=== PATIENT | male | born 1965 | race Caucasian/White ===

== ENCOUNTER 2017-06-17 09:27 | Emergency (ER) | payer OTHER ==
[2017-06-17] MEDS ORDERED: Sodium Chloride 0.9% 10 ML Syringe FLUSH PRN (09:55)
[2017-06-17] MEDS ORDERED: Ondansetron 4 MG/2 ML SDV IV ONE (09:56)
--- NOTE | 2017-06-17 10:02 | EDM.PDOC ---
ED HPI GENERAL MEDICAL PROBLEM - General Chief Complaint: Abdominal Pain Stated Complaint: GERD Time Seen by Provider: 06/17/17 09:43 Source of Information: Reports: Patient, RN, RN Notes Reviewed History Limitations: Reports: No Limitations - History of Present Illness INITIAL COMMENTS - FREE TEXT/NARRATIVE: Patient presents to ER with complaint of GERD symptoms, nausea and vomiting. He states pain is in the epigastric region. Patient states pain and nausea began on Sunday after a cup of coffee on an empty stomach. Patient states he has not taken any pills due to nausea. States he took Zantac without relief. Also has taken Ibuprofen. No cardiac history. History of GERD, kidney stones, hypertension and diverticulosis. Onset Date: 06/15/17 Duration: Getting Worse Location: Reports: Chest, Other (epigastric) Quality: Reports: Ache, Burning Severity: Moderate Improves with: Reports: None Worsens with: Reports: None Associated Symptoms: Reports: No Other Symptoms Abdominal Pain Score (Numeric/FACES): 4 - Related Data Allergies Allergy/AdvReac Type Severity Reaction Status Date / Time No Known Allergies Allergy Verified 05/19/16 08:25 Home Meds: Home Meds Losartan 50 mg PO DAILY 03/20/15 [History] Fenofibrate Nanocrystallized [Tricor] 145 mg PO DAILY 06/17/17 [History] Losartan [Cozaar] 06/17/17 [History] metFORMIN HCl [Metformin HCl ER] 500 mg PO BID 06/17/17 [History] Past Medical History - Past Health History Medical/Surgical History: Denies Medical/Surgical History HEENT History: Reports: Other (See Below) Other HEENT History: high frequency hearing loss, tininitis Cardiovascular History: Reports: Hypertension Gastrointestinal History: Reports: GERD Genitourinary History: Reports: Renal Calculus Social & Family History - Family History Cardiac: Reports: CAD, Hypertension Respiratory: Reports: None GI: Reports: None : Reports: None Musculoskeletal: Reports: None Neurological: Reports: None Psychiatric: Reports: None Endocrine/Metabolic: Reports: None Immunologic: Reports: None Dermatologic: Reports: None Oncologic: Reports: Bladder - Tobacco Use Smoking Status *Q: Never Smoker Second Hand Smoke Exposure: No - Alcohol Use Days Per Week of Alcohol Use: 2 Number of Drinks Per Day: 2 Total Drinks Per Week: 4 - Recreational Drug Use Recreational Drug Use: No - Living Situation & Occupation Living situation: Reports: , with Family ED ROS GENERAL - Review of Systems Review Of Systems: ROS reveals no pertinent complaints other than HPI. ED EXAM, GI/ABD - Physical Exam Exam: See Below Exam Limited By: No Limitations General Appearance: Alert, WD/WN, No Apparent Distress Eyes: Bilateral: Normal Appearance Ears: Normal External Exam, Normal Canal, Hearing Grossly Normal, Normal TMs Nose: Normal Inspection, Normal Mucosa, No Blood Throat/Mouth: Normal Inspection, Normal Lips, Normal Teeth, Normal Gums, Normal Oropharynx, Normal Voice, No Airway Compromise Head: Atraumatic, Normocephalic Neck: Normal Inspection, Supple, Non-Tender, Full Range of Motion Respiratory/Chest: No Respiratory Distress, Lungs Clear, Normal Breath Sounds, No Accessory Muscle Use, Chest Non-Tender Cardiovascular: Normal Peripheral Pulses, Regular Rate, Rhythm, No Edema, No Gallop, No JVD, No Murmur, No Rub GI/Abdominal Exam: Other (tenderness epigastric) (Male) Exam: Deferred Rectal (Males) Exam: Deferred Back Exam: Normal Inspection, Full Range of Motion, NT Extremities: Normal Inspection, Normal Range of Motion, Non-Tender, Normal Capillary Refill, No Pedal Edema Neurological: Alert, Oriented, CN II-XII Intact, Normal Cognition, Normal Gait, Normal Reflexes, No Motor/Sensory Deficits Psychiatric: Normal Affect, Normal Mood Skin Exam: Warm, Dry, Intact, Normal Color, No Rash Lymphatic: No Adenopathy EKG INTERPRETATION EKG Date: 06/17/17 Time: 09:59 Rhythm: Other (sinus rhythm) Rate (Beats/Min): 74 Course - Vital Signs Last Recorded V/S: Last Vital Signs Temp 97.6 F 06/17/17 09:42 Pulse 78 06/17/17 12:24 Resp 16 06/17/17 12:24 BP 149/96 H 06/17/17 12:24 Pulse Ox 96 06/17/17 12:24 - Orders/Labs/Meds Orders: Active Orders 24 hr Category Date Time Status EKG Documentation Completion [RC] STAT Care 06/17/17 09:55 Active Peripheral IV Care [RC] . DIRECTED Care 06/17/17 09:56 Active UA W/MICROSCOPIC [URIN] Stat Lab 06/17/17 10:18 Ordered Peripheral IV Insertion Adult [OM.PC] Stat Oth 06/17/17 09:55 Ordered Labs: Laboratory Tests 06/17/17 06/17/17 06/17/17 Range/Units 09:56 09:56 09:56 WBC 6.9 (5.0-10.0) 10^3/uL RBC 5.79 (4.6-6.2) 10^6/uL Hgb 15.9 (14.0-18.0) g/dL Hct 45.5 (40.0-54.0) % MCV 78.6 L (80-100) fL MCH 27.5 (27.0-34.0) pg MCHC 34.9 (33.0-35.0) g/dL Plt Count 198 (150-450) 10^3/uL Neut % (Auto) 81.7 H (42.2-75.2) % Lymph % (Auto) 13.3 L (20.5-50.1) % [place] % (Auto) 4.3 (2-8) % Eos % (Auto) 0.3 L (1.0-3.0) % Baso % (Auto) 0.4 (0.0-1.0) % PT 10.6 (9.0-12.0) SEC INR 1.1 (0.9-1.2) Sodium 134 L (135-145) mmol/L Potassium 3.9 (3.6-5.0) mmol/L Chloride 104 (101-111) mmol/L Carbon Dioxide 23.0 (21.0-31.0) mmol/L Anion Gap 10.9 BUN 15 (7-18) mg/dL Creatinine 0.9 (0.6-1.3) mg/dL Est Cr Clr Drug Dosing 102.99 mL/min Estimated GFR (MDRD) > 60 BUN/Creatinine Ratio 16.66 Glucose 207 H (74-105) mg/dL Calcium 9.2 (8.4-10.2) mg/dl Total Bilirubin 2.4 H (0.2-1.0) mg/dL AST 294 H (10-42) IU/L ALT 587 H (10-60) IU/L Alkaline Phosphatase 126 H (42-121) IU/L Troponin I < 0.02 (0.00-0.02) ng/ml Total Protein 7.3 (6.7-8.2) g/dl Albumin 4.5 (3.2-5.5) g/dl Globulin 2.8 Albumin/Globulin Ratio 1.61 Lipase 21 L (22-51) U/L Urine Color (YELLOW) Urine Appearance (CLEAR) Urine pH (5.0-9.0) Ur Specific [place] (1.005-1.030) Urine Protein (NEGATIVE) Urine Glucose (UA) (NEGATIVE) Urine Ketones (NEGATIVE) Urine Occult Blood (NEGATIVE) Urine Nitrite (NEGATIVE) Urine Bilirubin (NEGATIVE) Urine Urobilinogen (0.2-1.0) mg/dL Ur Leukocyte Esterase (NEGATIVE) Urine RBC /HPF Urine WBC (0-5/HPF) /HPF Ur Epithelial Cells /HPF Amorphous Sediment (0/HPF) /HPF Urine Bacteria (0-FEW/HPF) /HPF Urine Mucus /LPF 06/17/17 Range/Units 10:18 WBC (5.0-10.0) 10^3/uL RBC (4.6-6.2) 10^6/uL Hgb (14.0-18.0) g/dL Hct (40.0-54.0) % MCV (80-100) fL MCH (27.0-34.0) pg MCHC (33.0-35.0) g/dL Plt Count (150-450) 10^3/uL Neut % (Auto) (42.2-75.2) % Lymph % (Auto) (20.5-50.1) % [place] % (Auto) (2-8) % Eos % (Auto) (1.0-3.0) % Baso % (Auto) (0.0-1.0) % PT (9.0-12.0) SEC INR (0.9-1.2) Sodium (135-145) mmol/L Potassium (3.6-5.0) mmol/L Chloride (101-111) mmol/L Carbon Dioxide (21.0-31.0) mmol/L Anion Gap BUN (7-18) mg/dL Creatinine (0.6-1.3) mg/dL Est Cr Clr Drug Dosing mL/min Estimated GFR (MDRD) BUN/Creatinine Ratio Glucose (74-105) mg/dL Calcium (8.4-10.2) mg/dl Total Bilirubin (0.2-1.0) mg/dL AST (10-42) IU/L ALT (10-60) IU/L Alkaline Phosphatase (42-121) IU/L Troponin I (0.00-0.02) ng/ml Total Protein (6.7-8.2) g/dl Albumin (3.2-5.5) g/dl Globulin Albumin/Globulin Ratio Lipase (22-51) U/L Urine Color Dark yellow (YELLOW) Urine Appearance Slightly cloudy (CLEAR) Urine pH 5.5 (5.0-9.0) Ur Specific [place] >= 1.030 (1.005-1.030) Urine Protein 100 H (NEGATIVE) Urine Glucose (UA) Negative (NEGATIVE) Urine Ketones Negative (NEGATIVE) Urine Occult Blood Negative (NEGATIVE) Urine Nitrite Negative (NEGATIVE) Urine Bilirubin Moderate H (NEGATIVE) Urine Urobilinogen 0.2 (0.2-1.0) mg/dL Ur Leukocyte Esterase Negative (NEGATIVE) Urine RBC 0-5 /HPF Urine WBC 0-5 (0-5/HPF) /HPF Ur Epithelial Cells Rare /HPF Amorphous Sediment Few (0/HPF) /HPF Urine Bacteria Rare (0-FEW/HPF) /HPF Urine Mucus Moderate H /LPF Meds: Medications Discontinued Medications Generic Name Dose Route Start Last Admin Trade Name Freq PRN Reason Stop Dose Admin Famotidine 20 mg 06/17/17 11:09 06/17/17 11:16 Pepcid IVPUSH 06/17/17 11:10 20 mg ONETIME ONE Administration Sodium Chloride 1,000 mls @ 999 mls/hr 06/17/17 11:09 06/17/17 11:14 Normal Saline IV 06/17/17 12:09 999 mls/hr .BOLUS ONE Administration Ondansetron HCl 4 mg 06/17/17 09:56 06/17/17 10:06 Zofran IV 06/17/17 09:57 4 mg ONETIME ONE Administration Sodium Chloride 10 ml 06/17/17 09:55 06/17/17 10:05 Saline Flush FLUSH 10 ml ASDIRECTED PRN Administration Keep Vein Open - Radiology Interpretation Free Text/Narrative:: Portable Chest xray: IMPRESSION: Mild LEFT basilar pulmonary subsegmental atelectasis. Thank you for allowing us to participate in the care of your patient. Dictated and Authenticated by: Cristian Luis MD 06/17/2017 10:46 AM Central Time ([place] & [place]) See rad report - Re-Assessments/Exams Free Text/Narrative Re-Assessment/Exam: 06/17/17 11:23 Discussed with patient his elevated liver enzymes. Patient states some of his medications may be the culprit. We discussed the possibility of gallstones as well as the need for GI consultation. The patient states he will follow up with his primary [facility] facility ([facility] tomorrow. Departure - Departure Time of Disposition: 12:15 Disposition: Home, Self-Care 01 Condition: Fair Clinical Impression: Elevated liver enzymes Nausea and vomiting Qualifiers: Vomiting type: unspecified Vomiting Intractability: unspecified Qualified Code( s): R11.2 - Nausea with vomiting, unspecified GERD (gastroesophageal reflux disease) Qualifiers: Esophagitis presence: esophagitis presence not specified Qualified Code(s): K21.9 - Gastro-esophageal reflux disease without esophagitis - Discharge Information Instructions: Food Choices for Gastroesophageal Reflux Disease, Adult, Nausea and Vomiting, Adult, Gastroesophageal Reflux Disease, Adult, [id number] Referrals: Christina Maldonado I, ZONIA, PARubenC [Primary Care Provider] - Forms: ED Department Discharge Additional Instructions: [facility] RX: Zofran and Carafate Follow food choices for GERD - My Orders Last 24 Hours: My Active Orders 06/17/17 09:55 EKG Documentation Completion [RC] STAT Peripheral IV Insertion Adult [OM.PC] Stat 06/17/17 09:56 Peripheral IV Care [RC] . DIRECTED 06/17/17 10:18 UA W/MICROSCOPIC [URIN] Stat - Assessment/Plan Last 24 Hours: My Active Orders 06/17/17 09:55 EKG Documentation Completion [RC] STAT Peripheral IV Insertion Adult [OM.PC] Stat 06/17/17 09:56 Peripheral IV Care [RC] . DIRECTED 06/17/17 10:18 UA W/MICROSCOPIC [URIN] Stat
[2017-06-17 10:32] LABS: CHLORIDE,CL 104 mmol/L (101-111); SODIUM,NA 134 mmol/L (135-145)
[2017-06-17] MEDS ORDERED: Sodium Chloride 0.9% 1,000 ML IV ONE (11:09)
[2017-06-17 12:24] VITALS: BP 149/96
--- NOTE | 2017-06-19 13:30 | EKG ---
06/17/2017- ALYCIA ORELLANA - FINDINGS: EKG, per my reading, shows sinus rhythm at the rate of 74. [facility] /[id number]
== END 2017-06-17 12:15 | disposition home or self-care (01) ==
LOC: DL.ED 09:27
DX: K21.9 Gastro-esophageal reflux disease without esophagitis (principal); R74.8 Abnormal levels of other serum enzymes; I10 Essential (primary) hypertension; Z79.899 Other long term (current) drug therapy; Z79.84 Long term (current) use of oral hypoglycemic drugs; Z87.442 Personal history of urinary calculi
CPT/HCPCS: 36415; 71045; 80053; 81001; 83690; 84484; 85025; 85610; 93005; 93010; 96361; 96374; 96375; 99284; J2405; J3490; J7030; J7050

== ENCOUNTER 2017-07-09 08:15 | Day surgery (SDC) | payer OTHER ==
[~2017-07-09 08:15] MED LIST: Lactated Ringers 1,000 ML IV SCH; Midazolam 1 MG/ML 2 ML SDV ONE; fentaNYL 100 MCG/2 ML SDV ONE
[2017-07-09] MEDS ORDERED: fentaNYL 100 MCG/2 ML SDV IV ONE ×2 (08:16→08:45)
[2017-07-09] MEDS ORDERED: Midazolam 1 MG/ML 2 ML SDV IV ONE ×2 (08:16→08:46)
[2017-07-09] MEDS ORDERED: Benzocaine 20% Oral Spray 59.2 ML Canister ONE (08:23)
[2017-07-09] MEDS ORDERED: Midazolam 1 MG/ML 2 ML SDV ONE (08:23)
[2017-07-09] MEDS ORDERED: Benzocaine 20% Oral Spray 59.2 ML Canister MUCMEM ONE (08:45)
[2017-07-09 10:53] VITALS: BP 127/75
--- NOTE | 2017-07-09 15:56 | OR ---
DATE: 07/09/2017 PREOPERATIVE DIAGNOSES: History of peptic ulcer disease and gastroesophageal reflux disease. POSTOPERATIVE DIAGNOSES: History of peptic ulcer disease and gastroesophageal reflux disease. PROCEDURE: EGD with biopsy of prepyloric antrum and photographs. ANESTHESIA: Conscious sedation with IV Versed and fentanyl. SPECIMEN: H. pylori biopsy, gastric prepyloric area. FINDINGS: Otherwise normal. INDICATION FOR PROCEDURE: This 52-year-old male has a history of peptic ulcer disease and also has GERD symptoms. He has had prior EGDs with biopsies. PROCEDURE: After adequate preparation, a gastroscope was inserted into the esophagus. This was passed down to the distal esophagus. He shows no evidence of significant hiatal hernia or reflux esophagitis. There was no evidence of Zamorano's. A photograph of this normal EG junction was taken. The scope was advanced into the stomach. Both forward and retroflexed views were done and are normal. There is no evidence of gastritis. A biopsy in the prepyloric area was taken to rule out H. pylori bacteria. The scope was advanced and a photograph of this was taken. The scope was advanced through the pylorus, the duodenum appeared to be normal. No evidence of ulceration in the first, second or third portion. A photograph of duodenum was also taken. Air was suctioned from the stomach and the scope removed. [facility] /[id number]
== END 2017-07-09 10:04 | disposition home or self-care (01) ==
LOC: DL.ENDO 08:15 → EDSTATUS 09:00 → DL.ENDO 10:04
PROVIDERS: ATTEND Surgery
DX: K21.9 Gastro-esophageal reflux disease without esophagitis (principal); Z87.11 Personal history of peptic ulcer disease; I10 Essential (primary) hypertension; E11.9 Type 2 diabetes mellitus without complications; G47.30 Sleep apnea, unspecified
CPT/HCPCS: 43239; 87077; J2250; J3010; J7120

== ENCOUNTER 2019-05-12 15:15 | Emergency (ER) | payer OTHER ==
--- NOTE | 2019-05-12 15:45 | EDM.PDOC ---
ED HPI GENERAL MEDICAL PROBLEM - General Chief Complaint: Abdominal Pain Stated Complaint: POSSIBLE KIDNEY STONE Time Seen by Provider: 05/12/19 15:44 Source of Information: Reports: Patient, RN, RN Notes Reviewed History Limitations: Reports: No Limitations - History of Present Illness INITIAL COMMENTS - FREE TEXT/NARRATIVE: Pt to ER with c/o left abdominal/groin pain that radiates to the left back. Patient states he thinks he has a kidney stone, that he has had one in the past. Patient states he was dx with C diff last week and hospitalized at [facility] for 2 days. Patient states he was very dehydrated at that time. Patient states he thinks he is dehydrated again at this time. Admits to nausea in waves. Denies fever or chills. Denies blood in the urine. Onset: Today, Sudden - Related Data Allergies Allergy/AdvReac Type Severity Reaction Status Date / Time No Known Allergies Allergy Verified 12/03/17 06:57 Home Meds: Home Meds Losartan [Cozaar] 50 mg PO DAILY 06/17/17 [History] metFORMIN HCl [Metformin HCl ER] 500 mg PO BID 06/17/17 [History] Cholecalciferol (Vitamin D3) [Vitamin D3] 1,000 units PO DAILY 07/05/17 [History ] Gemfibrozil 600 mg PO DAILY 07/05/17 [History] Past Medical History - Past Health History Medical/Surgical History: Denies Medical/Surgical History HEENT History: Reports: Hard of Hearing, Impaired Vision, Other (See Below) Other HEENT History: high frequency hearing loss, tininitis Cardiovascular History: Reports: High Cholesterol, Hypertension Respiratory History: Reports: Sleep Apnea Gastrointestinal History: Reports: Diverticulosis, GERD, Other (See Below) Other Gastrointestinal History: NON ALCOHOLIC FATTY LIVER DISEASE, HX OF ELEVATED LIVER ENZYMES. Hx of adenoma Genitourinary History: Reports: None, Renal Calculus Musculoskeletal History: Reports: Arthritis Neurological History: Reports: None Psychiatric History: Reports: None Endocrine/Metabolic History: Reports: Diabetes, Type II, Obesity/BMI 30+, Vitamin D Deficiency Hematologic History: Reports: None Immunologic History: Reports: None Oncologic (Cancer) History: Reports: None Dermatologic History: Reports: None - Infectious Disease History Infectious Disease History: Reports: Chicken Pox - Past Surgical History Head Surgeries/Procedures: Reports: None HEENT Surgical History: Reports: Oral Surgery Other HEENT Surgeries/Procedures: Dental implant Cardiovascular Surgical History: Reports: None Respiratory Surgical History: Reports: None GI Surgical History: Reports: Colonoscopy, Polypectomy Male Surgical History: Reports: Circumcision Other Male Surgeries/Procedures: circumcision as a child Neurological Surgical History: Reports: None Musculoskeletal Surgical History: Reports: None Dermatological Surgical History: Reports: None Social & Family History - Family History HEENT: Reports: None Cardiac: Reports: Heart Failure, High Cholesterol, Hypertension Respiratory: Reports: None GI: Reports: Diverticulosis : Reports: None Musculoskeletal: Reports: None Neurological: Reports: Other (See Below) Other Neurological Family History: Brother has muscular dystophy Psychiatric: Reports: None Endocrine/Metabolic: Reports: None Hematologic: Reports: None Immunologic: Reports: None Dermatologic: Reports: None Oncologic: Reports: Bladder, Other (See Below) Other Oncologic Family History: Bladder cancer father. testicular cancer #6 brother - Caffeine Use Caffeine Use: Reports: Coffee, Tea Other Caffeine Use: 2 cups daily - Living Situation & Occupation Living situation: Reports: , with Family ED ROS GENERAL - Review of Systems Review Of Systems: Comprehensive ROS is negative, except as noted in HPI. ED EXAM, RENAL/ - Physical Exam Exam: See Below Exam Limited By: No Limitations General Appearance: Alert, WD/WN, Mild Distress Eye Exam: Bilateral Eye: EOMI, Normal Inspection Ears: Normal External Exam, Hearing Grossly Normal Nose: Normal Inspection Throat/Mouth: Normal Inspection, Normal Voice, No Airway Compromise Head: Atraumatic, Normocephalic Neck: Normal Inspection, Supple, Non-Tender, Full Range of Motion Respiratory/Chest: No Respiratory Distress, Lungs Clear, Normal Breath Sounds, No Accessory Muscle Use, Chest Non-Tender Cardiovascular: Normal Peripheral Pulses, Regular Rate, Rhythm, No Edema, No Gallop, No JVD, No Murmur, No Rub GI/Abdominal: Normal Bowel Sounds, Soft, Non-Tender, No Organomegaly, No Distention, No Abnormal Bruit, No Mass (Male) Exam: Deferred Rectal (Males) Exam: Deferred Back Exam: Normal Inspection, Full Range of Motion, NT Extremities: Normal Inspection, Normal Range of Motion, Non-Tender, Normal Capillary Refill, No Pedal Edema Neurological: Alert, Oriented, CN II-XII Intact, Normal Cognition, Normal Gait, Normal Reflexes, No Motor/Sensory Deficits Psychiatric: Normal Affect, Normal Mood Skin Exam: Warm, Dry, Intact, Normal Color, No Rash Lymphatic: No Adenopathy Course - Orders/Labs/Meds Orders: Active Orders 24 hr Category Date Time Status Peripheral IV Care [RC] . DIRECTED Care 05/12/19 15:31 Active Sodium Chloride 0.9% [Normal Saline] 1,000 ml Med 05/12/19 16:27 Active IV .BOLUS Sodium Chloride 0.9% [Saline Flush] Med 05/12/19 15:30 Active 10 ml FLUSH ASDIRECTED PRN Peripheral IV Insertion Adult [OM.PC] Stat Oth 05/12/19 15:29 Ordered Medication Orders Sodium Chloride (Normal Saline) 1,000 mls @ 999 mls/hr IV .BOLUS ONE Stop: 05/12/19 17:27 Last Admin: 05/12/19 16:31 Dose: 999 mls/hr Sodium Chloride (Saline Flush) 10 ml FLUSH ASDIRECTED PRN PRN Reason: Keep Vein Open Last Admin: 05/12/19 15:52 Dose: 10 ml Labs: Laboratory Tests 05/12/19 05/12/19 05/12/19 Range/Units 15:42 15:42 16:34 WBC 4.5 L (5.0-10.0) 10^3/uL RBC 4.76 (4.6-6.2) 10^6/uL Hgb 13.1 L D (14.0-18.0) g/dL Hct 38.7 L (40.0-54.0) % MCV 81.3 (80-100) fL MCH 27.5 (27.0-34.0) pg MCHC 33.9 (33.0-35.0) g/dL Plt Count 276 D (150-450) 10^3/uL Neut % (Auto) 63.5 (42.2-75.2) % Lymph % (Auto) 25.8 (20.5-50.1) % [place] % (Auto) 8.7 H (2-8) % Eos % (Auto) 1.8 (1.0-3.0) % Baso % (Auto) 0.2 (0.0-1.0) % Add Manual Diff Yes Neutrophils % (Manual) 58 (42-75) % Band Neutrophils % 9 % Lymphocytes % (Manual) 22 (20-50) % Monocytes % (Manual) 8 (2-8) % Eosinophils % (Manual) 3 (1-3) % Sodium 141 (136-145) mmol/L Potassium 4.1 (3.5-5.1) mmol/L Chloride 103 (98-107) mmol/L Carbon Dioxide 28 (21-32) mmol/L Anion Gap 14.1 H (7-13) mEq/L BUN 25 H (7-18) mg/dL Creatinine 1.36 H (0.70-1.30) mg/dL Est Cr Clr Drug Dosing TNP Estimated GFR (MDRD) 54 BUN/Creatinine Ratio 18.4 (No establ ref range) Glucose 113 H (74-99) mg/dL Calcium 9.0 (8.5-10.1) mg/dL Total Bilirubin 0.5 (0.2-1.0) mg/dL AST 33 (15-37) U/L ALT 89 H (16-63) U/L Alkaline Phosphatase 91 (46-116) U/L Total Protein 7.3 (6.4-8.2) g/dL Albumin 3.8 (3.4-5.0) g/dL Globulin 3.5 Albumin/Globulin Ratio 1.1 Urine Color Yellow (YELLOW) Urine Appearance Slightly cloudy (CLEAR) Urine pH 5.0 (5.0-9.0) Ur Specific [place] >= 1.030 (1.005-1.030) Urine Protein Negative (NEGATIVE) Urine Glucose (UA) Negative (NEGATIVE) Urine Ketones Negative (NEGATIVE) Urine Occult Blood Large H (NEGATIVE) Urine Nitrite Negative (NEGATIVE) Urine Bilirubin Negative (NEGATIVE) Urine Urobilinogen 0.2 (0.2-1.0) mg/dL Ur Leukocyte Esterase Negative (NEGATIVE) Urine RBC 40-50 H /HPF Urine WBC 0-5 (0-5/HPF) /HPF Ur Epithelial Cells Rare (NOT SEEN) /HPF Amorphous Sediment Few (NOT SEEN) /HPF Urine Bacteria Few (0-FEW/HPF) /HPF Urine Mucus Few H (NOT SEEN) /LPF Meds: Medications Generic Name Dose Route Start Last Admin Trade Name Freq PRN Reason Stop Dose Admin Sodium Chloride 1,000 mls @ 999 mls/hr 05/12/19 16:27 05/12/19 16:31 Normal Saline IV 03/16/20 17:27 999 mls/hr .BOLUS ONE Administration Sodium Chloride 10 ml 05/12/19 15:30 05/12/19 15:52 Saline Flush FLUSH 10 ml ASDIRECTED PRN Administration Keep Vein Open Discontinued Medications Generic Name Dose Route Start Last Admin Trade Name Heather PRN Reason Stop Dose Admin Sodium Chloride 1,000 mls @ 999 mls/hr 05/12/19 15:30 05/12/19 15:51 Normal Saline IV 05/12/19 16:30 999 mls/hr .BOLUS ONE Administration Ketorolac Tromethamine 30 mg 05/12/19 16:07 05/12/19 16:28 Toradol IVPUSH 05/12/19 16:08 30 mg ONETIME ONE Administration - Re-Assessments/Exams Free Text/Narrative Re-Assessment/Exam: 05/12/19 17:[address] at this time. States he would like to rehydrate and if he has difficulty with urination or increased pain, he will return to the ER. Departure - Departure Time of Disposition: 17:21 Disposition: Home, Self-Care 01 Condition: Fair Clinical Impression: C. difficile colitis, Nephrolithiasis - Discharge Information *PRESCRIPTION DRUG MONITORING PROGRAM REVIEWED*: No *COPY OF PRESCRIPTION DRUG MONITORING REPORT IN PATIENT AMRITA: No Instructions: Kidney Stones, [id number], Clostridioides Difficile Infection, Abdominal Pain, Adult, [id number], Dietary Guidelines to Help Prevent Kidney Stones Forms: ED Department Discharge Additional Instructions: RX: Flomax, Ketorolac Drink plenty of fluids Sepsis Event Note - Focused Exam Date Exam was Performed: 05/12/19 Time Exam was Performed: 17:21 - My Orders Last 24 Hours: My Active Orders 05/12/19 15:29 Peripheral IV Insertion Adult [OM.PC] Stat 05/12/19 15:30 Sodium Chloride 0.9% [Saline Flush] 10 ml FLUSH ASDIRECTED PRN 05/12/19 15:31 Peripheral IV Care [RC] . DIRECTED 05/12/19 16:27 Sodium Chloride 0.9% [Normal Saline] 1,000 ml IV .BOLUS - Assessment/Plan Last 24 Hours: My Active Orders 05/12/19 15:29 Peripheral IV Insertion Adult [OM.PC] Stat 05/12/19 15:30 Sodium Chloride 0.9% [Saline Flush] 10 ml FLUSH ASDIRECTED PRN 05/12/19 15:31 Peripheral IV Care [RC] . DIRECTED 05/12/19 16:27 Sodium Chloride 0.9% [Normal Saline] 1,000 ml IV .BOLUS
[2019-05-12] MEDS: Sodium Chloride 0.9% 1,000 ML IV ONE ×2 (15:51→16:31)
[2019-05-12] MEDS: Sodium Chloride 0.9% 10 ML Syringe FLUSH PRN (15:52)
[2019-05-12 16:09] LABS: ANION GAP 14.1 mEq/L (7-13); CHLORIDE,CL 103 mmol/L (98-107); SODIUM,NA 141 mmol/L (136-145)
[2019-05-12] MEDS: Ketorolac 30 MG/ML SDV IVPUSH ONE (16:28)
[2019-05-12 17:56] VITALS: BP 151/94; PULSE 75
== END 2019-05-12 17:45 | disposition home or self-care (01) ==
LOC: DL.ED 15:15
DX: A04.72 Enterocolitis due to Clostridium difficile, not specified as recurrent (principal); N20.0 Calculus of kidney; I10 Essential (primary) hypertension; E11.9 Type 2 diabetes mellitus without complications; Z79.84 Long term (current) use of oral hypoglycemic drugs; Z79.899 Other long term (current) drug therapy
CPT/HCPCS: 36415; 80053; 81001; 85025; 96361; 96374; 99284; J1885; J7030; 99283

== ENCOUNTER 2020-04-24 17:27 | Emergency (ER) | payer OTHER ==
[2020-04-24] MEDS ORDERED: Ondansetron 4 MG Tab.DIS PO ONE (17:28)
[2020-04-24] MEDS ORDERED: Acetaminophen/HYDROcodone 325-10 MG Tab PO ONE (17:28)
[2020-04-24] MEDS ORDERED: Ciprofloxacin 500 MG Tab PO ONE (17:28)
[2020-04-24 17:48] VITALS: BP 136/90; PULSE 98
[2020-04-24] MEDS ORDERED: HYDROmorphone 1 MG/ML Syringe IVPUSH ONE (17:51)
[2020-04-24] MEDS ORDERED: Sodium Chloride 0.9% 1,000 ML IV ONE (17:51)
[2020-04-24] MEDS ORDERED: Ondansetron 4 MG/2 ML SDV IV ONE (18:01)
--- NOTE | 2020-04-24 18:03 | EDM.PDOC ---
<Qamar Hastings Franci - Last Filed: 04/24/20 17:58> ED HPI GENERAL MEDICAL PROBLEM - General Chief Complaint: Flank Pain Stated Complaint: KIDNEY STONES Time Seen by Provider: 04/24/20 17:58 Source of Information: Reports: Patient History Limitations: Reports: No Limitations - History of Present Illness INITIAL COMMENTS - FREE TEXT/NARRATIVE: 54 y/o M c/o L flank, side and groin pain since 9 am yesterday morning. The pain is constant but increases with waves of pain intermittently, cramping in nature and is rated 5/10. Hx of kidney stones in the past with the last one occur 1-2 years ago. Pain today feels like previous kidney stones. [facility] which showed [facility] in urine. Other hx of type II diabetes, cyst on R kidney and BPH. Pt has experienced fever and chills with his pain. Denies potts, cp, db, extremity pain, drugs, etoh. Left Flank Pain Score (Numeric/FACES): 4 - Related Data Allergies Allergy/AdvReac Type Severity Reaction Status Date / Time No Known Allergies Allergy Verified 04/24/20 17:49 Home Meds: Home Meds Losartan [Cozaar] 100 mg PO DAILY 06/17/17 [History] metFORMIN HCl [Metformin HCl ER] 1,000 mg PO BID 06/17/17 [History] Cholecalciferol (Vitamin D3) [Vitamin D3] 1,000 units PO DAILY 07/05/17 [History] Gemfibrozil 600 mg PO BID 07/05/17 [History] Tamsulosin [Tamsulosin 24 Hr] 0.4 mg PO ASDIRECTED 04/24/20 [History] Past Medical History - Past Health History Medical/Surgical History: Denies Medical/Surgical History HEENT History: Reports: Hard of Hearing, Impaired Vision, Other (See Below) Other HEENT History: high frequency hearing loss, tininitis Cardiovascular History: Reports: High Cholesterol, Hypertension Respiratory History: Reports: Sleep Apnea Gastrointestinal History: Reports: Diverticulosis, GERD, Other (See Below) Other Gastrointestinal History: NON ALCOHOLIC FATTY LIVER DISEASE, HX OF ELEVATED LIVER ENZYMES. Hx of adenoma Genitourinary History: Reports: None, Renal Calculus Musculoskeletal History: Reports: Arthritis Neurological History: Reports: None Psychiatric History: Reports: None Endocrine/Metabolic History: Reports: Diabetes, Type II, Obesity/BMI 30+, Vitamin D Deficiency Hematologic History: Reports: None Immunologic History: Reports: None Oncologic (Cancer) History: Reports: None Dermatologic History: Reports: None - Infectious Disease History Infectious Disease History: Reports: Chicken Pox - Past Surgical History Head Surgeries/Procedures: Reports: None HEENT Surgical History: Reports: Oral Surgery Other HEENT Surgeries/Procedures: Dental implant Cardiovascular Surgical History: Reports: None Respiratory Surgical History: Reports: None GI Surgical History: Reports: Colonoscopy, Polypectomy Male Surgical History: Reports: Circumcision Other Male Surgeries/Procedures: circumcision as a child Neurological Surgical History: Reports: None Musculoskeletal Surgical History: Reports: None Dermatological Surgical History: Reports: None Social & Family History - Family History HEENT: Reports: None Cardiac: Reports: Heart Failure, High Cholesterol, Hypertension Respiratory: Reports: None GI: Reports: Diverticulosis : Reports: None Musculoskeletal: Reports: None Neurological: Reports: Other (See Below) Other Neurological Family History: Brother has muscular dystophy Psychiatric: Reports: None Endocrine/Metabolic: Reports: None Hematologic: Reports: None Immunologic: Reports: None Dermatologic: Reports: None Oncologic: Reports: Bladder, Other (See Below) Other Oncologic Family History: Bladder cancer father. testicular cancer #6 brother - Tobacco Use Tobacco Use Status *Q: Never Tobacco User Second Hand Smoke Exposure: No - Caffeine Use Caffeine Use: Reports: Coffee, Tea Other Caffeine Use: 2 cups daily - Recreational Drug Use Recreational Drug Use: No - Living Situation & Occupation Living situation: Reports: , with Family ED ROS GENERAL - Review of Systems Review Of Systems: Comprehensive ROS is negative, except as noted in HPI. ED EXAM, RENAL/ - Physical Exam Exam: See Below Exam Limited By: No Limitations General Appearance: Alert, WD/WN, No Apparent Distress Throat/Mouth: Normal Inspection, Normal Lips, Normal Teeth, Normal Gums, Normal Oropharynx, Normal Voice, No Airway Compromise Head: Atraumatic, Normocephalic Neck: Normal Inspection, Supple, Non-Tender, Full Range of Motion Respiratory/Chest: No Respiratory Distress, Lungs Clear, Normal Breath Sounds, No Accessory Muscle Use, Chest Non-Tender Cardiovascular: Normal Peripheral Pulses, Regular Rate, Rhythm, No Edema, No Gallop, No JVD, No Murmur, No Rub GI/Abdominal: Soft, Other (tedner to palpation L flank, L lower quad, Left lower groin) (Male) Exam: Deferred Rectal (Males) Exam: Deferred Back Exam: Full Range of Motion Extremities: Normal Inspection, Normal Range of Motion, Non-Tender, Normal Capillary Refill, No Pedal Edema Neurological: Alert, Oriented, CN II-XII Intact, Normal Cognition, Normal Gait, Normal Reflexes, No Motor/Sensory Deficits Psychiatric: Normal Affect, Normal Mood Skin Exam: Warm, Dry, Intact, Normal Color, No Rash Departure - Departure Disposition: Home, Self-Care 01 Clinical Impression: Ureteric colic, Left renal stone, Nausea - Discharge Information Instructions: Kidney Stones, Nausea, Adult, [id number] Forms: ED Department Discharge Additional Instructions: increase fluids clinic follow up this week, sooner if fevr chills and nausea not controlled cipro 500mg one twice daily for one wee zofran ODT 4mg one every 4 hours as needed for nausea Hydrocodone 10/325 one every 4 hours as needed for severe pain Continue Flomax Sepsis Event Note (ED) - Evaluation Sepsis Screening Result: No Definite Risk <Rosalind Peña - Last Filed: 04/24/20 18:45> ED HPI GENERAL MEDICAL PROBLEM - History of Present Illness Onset: Gradual Course - Radiology Interpretation Free Text/Narrative:: CT of Abdomen and pelvis wo contrast: PROCEDURE INFORMATION: Exam: CT Abdomen And Pelvis Without Contrast Exam date and time: 04/24/2020 6:02 PM Age: 54 years old Clinical indication: Other: Left sided pain--hx renal stones; Additional info: ? Kidneystone TECHNIQUE: Imaging protocol: Computed tomography of the abdomen and pelvis without contrast. Radiation optimization: All CT scans at this facility use at least one of these dose optimization techniques: automated exposure control; mA and/or kV adjustment per patient size (includes targeted exams where dose is matched to clinical indication); or iterative reconstruction. COMPARISON: MR Abdomen wo Cont 09/10/2018 8:02 AM FINDINGS: Lungs: Mild subsegmental consolidation in the lingular segment of the left upper lobe. This may represent atelectasis or mild infiltrate. Bibasilar linear areas of scarring or atelectasis in the posterior lung bases. Pleural spaces: No pleural effusion. Liver: Mild hepatic enlargement. No focal hepatic lesions. Gallbladder and bile ducts: Gallbladder sludge versus stones. No gallbladder wall thickening or acute biliary dilatation. Pancreas: Mild to moderate pancreatic atrophy. Spleen: Spleen is normal in contour and attenuation. Adrenal glands: Normal. No mass. Kidneys and ureters: [id number] left hydronephrosis There is a 1 mm calculus suggested at the ureterovesicular junction on coronal series 3, image 74. Mild inflammation surrounding the left kidney in the pararenal fat. No additional upper collecting system calculi. No right renal calculi. There is an exophytic lateral right renal 11 mm hyperdense focus most likely representing a cyst. There is an adjacent 5 mm exophytic right renal cyst. No further imaging workup is recommended based on MIPS criteria. Previous MRI 09/10/2018 showing these right renal foci. They are unchanged. On the prior study, there was no hydronephrosis of the left kidney evident. Stomach and bowel: Unremarkable. No obstruction. No mucosal thickening. Colonic diverticulosis without acute diverticulitis. Appendix: No evidence of appendicitis. Intraperitoneal space: Unremarkable. No free air. No significant fluid colle ction. Vasculature: Mild coronary artery atherosclerotic calcium. No cardiac enlargement. No pericardial effusion. Lymph nodes: Unremarkable. No enlarged lymph nodes. Urinary bladder: Unremarkable as visualized. Reproductive: Unremarkable as visualized. Bones/joints: Unremarkable. No acute fracture. Soft tissues: Fat containing right inguinal hernia without evidence of strangulation.. IMPRESSION: 1. Mild to moderate left hydroureteronephrosis with appearance of a 1 mm calculus at the ureterovesicular junction. Mild inflammation surrounding the left kidney. No additional calculi. 2. Right renal cysts. No further imaging follow-up recommended based on MIPS criteria. 3. Mild hepatic enlargement. 4. Gallbladder sludge versus stones. 5. Mild to moderate pancreatic atrophy. COMMENTS: Consistent with the [employer]'s Incidental Findings Committee white paper (J Am Reji Radiol 2018): Any incidental renal lesion less than 1 cm or classified as too small to characterize, or any incidental cystic renal lesion characterized as simple- appearing, is likely benign. No follow-up imaging is recommended for these lesions per consensus recomm endations based on imaging criteria. Thank you for allowing us to participate in the care of your patient. Dictated and Authenticated by: Vinh Taylor MD 04/24/2020 6:44 PM Central Time ([place] & [place]) See rad report - Re-Assessments/Exams Free Text/Narrative Re-Assessment/Exam: 04/24/20 18:25 I personally performed or re-performed the physical examination and medical decision making. I have verified all student documentation or findings, including history, physical exam and/or medical decision making. 04/24/20 18:49 Patient care passed to Ebonie Garvin PA-C upon shift change. <Ebonie Garvin - Last Filed: 04/24/20 19:27> Course - Vital Signs Last Recorded V/S: Last Vital Signs Temp 98.4 F 04/24/20 17:39 Pulse 98 04/24/20 17:39 Resp 18 04/24/20 17:39 BP 136/90 04/24/20 17:39 Pulse Ox 98 04/24/20 17:39 - Orders/Labs/Meds Labs: Laboratory Tests 04/24/20 04/24/20 04/24/20 Range/Units 17:51 17:56 17:56 WBC 8.3 (5.0-10.0) 10^3/uL RBC 5.20 (4.6-6.2) 10^6/uL Hgb 15.2 D (14.0-18.0) g/dL Hct 42.5 (40.0-54.0) % MCV 81.7 (80-100) fL MCH 29.2 (27.0-34.0) pg MCHC 35.8 H (33.0-35.0) g/dL Plt Count 193 D (150-450) 10^3/uL Neut % (Auto) 72.4 (42.2-75.2) % Lymph % (Auto) 19.6 L (20.5-50.1) % [place] % (Auto) 7.2 (2-8) % Eos % (Auto) 0.6 L (1.0-3.0) % Baso % (Auto) 0.2 (0.0-1.0) % Sodium 139 (136-145) mmol/L Potassium 4.0 (3.5-5.1) mmol/L Chloride 100 (98-107) mmol/L Carbon Dioxide 28 (21-32) mmol/L Anion Gap 15.0 H (7-13) mEq/L BUN 34 H (7-18) mg/dL Creatinine 1.81 H (0.70-1.30) mg/dL Est Cr Clr Drug Dosing 44.09 mL/min Estimated GFR (MDRD) 39 BUN/Creatinine Ratio 18.8 (No establ ref range) Glucose 152 H (74-99) mg/dL Calcium 9.5 (8.5-10.1) mg/dL Total Bilirubin 0.6 (0.2-1.0) mg/dL AST 12 L (15-37) U/L ALT 44 (16-63) U/L Alkaline Phosphatase 94 (46-116) U/L Total Protein 7.6 (6.4-8.2) g/dL Albumin 4.1 (3.4-5.0) g/dL Globulin 3.5 Albumin/Globulin Ratio 1.2 Urine Color Yellow (YELLOW) Urine Appearance Clear (CLEAR) Urine pH 5.5 (5.0-9.0) Ur Specific [place] 1.025 (1.005-1.030) Urine Protein Negative (NEGATIVE) Urine Glucose (UA) Negative (NEGATIVE) Urine Ketones Negative (NEGATIVE) Urine Occult Blood Negative (NEGATIVE) Urine Nitrite Negative (NEGATIVE) Urine Bilirubin Negative (NEGATIVE) Urine Urobilinogen 0.2 (0.2-1.0) mg/dL Ur Leukocyte Esterase Negative (NEGATIVE) Meds: Medications Discontinued Medications Generic Name Dose Route Start Last Admin Trade Name Heather PRN Reason Stop Dose Admin Hydrocodone Bitart/Acetaminophen Confirm 04/24/20 19:11 [place] 325-10 Mg Administered 04/24/20 19:12 Dose 3 tab .ROUTE .STK-MED ONE Ciprofloxacin Confirm 04/24/20 19:11 Ciprofloxacin Hcl Administered 04/24/20 19:12 Dose 1,000 mg .ROUTE .STK-MED ONE Hydromorphone HCl 1 mg 04/24/20 17:51 04/24/20 17:58 Dilaudid IVPUSH 04/24/20 17:52 1 mg ONETIME ONE Administration Sodium Chloride 1,000 mls @ 999 mls/hr 04/24/20 17:51 04/24/20 17:58 Normal Saline IV 04/24/20 18:51 999 mls/hr .BOLUS ONE Administration Ondansetron HCl 4 mg 04/24/20 18:01 04/24/20 18:04 Zofran IV 04/24/20 18:02 4 mg ONETIME ONE Administration Ondansetron HCl Confirm 04/24/20 19:11 Zofran Odt Administered 04/24/20 19:12 Dose 12 mg .ROUTE .STK-MED ONE Departure - Departure Time of Disposition: 19:24 Condition: Good - Discharge Information *PRESCRIPTION DRUG MONITORING PROGRAM REVIEWED*: No *COPY OF PRESCRIPTION DRUG MONITORING REPORT IN PATIENT AMRITA: No Sepsis Event Note (ED) - Focused Exam Vital Signs: Vital Signs Temp Pulse Resp BP Pulse Ox 04/24/20 17:39 98.4 F 98 18 136/90 98
--- NOTE | 2020-04-24 18:44 | CT ---
PROCEDURE INFORMATION: Exam: CT Abdomen And Pelvis Without Contrast Exam date and time: 04/24/2020 6:02 PM Age: 54 years old Clinical indication: Other: Left sided pain--hx renal stones; Additional info: ? Kidneystone TECHNIQUE: Imaging protocol: Computed tomography of the abdomen and pelvis without contrast. Radiation optimization: All CT scans at this facility use at least one of these dose optimization techniques: automated exposure control; mA and/or kV adjustment per patient size (includes targeted exams where dose is matched to clinical indication); or iterative reconstruction. COMPARISON: MR Abdomen wo Cont 09/10/2018 8:02 AM FINDINGS: Lungs: Mild subsegmental consolidation in the lingular segment of the left upper lobe. This may represent atelectasis or mild infiltrate. Bibasilar linear areas of scarring or atelectasis in the posterior lung bases. Pleural spaces: No pleural effusion. Liver: Mild hepatic enlargement. No focal hepatic lesions. Gallbladder and bile ducts: Gallbladder sludge versus stones. No gallbladder wall thickening or acute biliary dilatation. Pancreas: Mild to moderate pancreatic atrophy. Spleen: Spleen is normal in contour and attenuation. Adrenal glands: Normal. No mass. Kidneys and ureters: [id number] left hydronephrosis. There is a 1 mm calculus suggested at the ureterovesicular junction on coronal series 3, image 74. Mild inflammation surrounding the left kidney in the pararenal fat. No additional upper collecting system calculi. No right renal calculi. There is an exophytic lateral right renal 11 mm hyperdense focus most likely representing a cyst. There is an adjacent 5 mm exophytic right renal cyst. No further imaging workup is recommended based on MIPS criteria. Previous MRI 09/10/2018 showing these right renal foci. They are unchanged. On the prior study, there was no hydronephrosis of the left kidney evident. Stomach and bowel: Unremarkable. No obstruction. No mucosal thickening. Colonic diverticulosis without acute diverticulitis. Appendix: No evidence of appendicitis. Intraperitoneal space: Unremarkable. No free air. No significant fluid collection. Vasculature: Mild coronary artery atherosclerotic calcium. No cardiac enlargement. No pericardial effusion. Lymph nodes: Unremarkable. No enlarged lymph nodes. Urinary bladder: Unremarkable as visualized. Reproductive: Unremarkable as visualized. Bones/joints: Unremarkable. No acute fracture. Soft tissues: Fat containing right inguinal hernia without evidence of strangulation.. IMPRESSION: 1. Mild to moderate left hydroureteronephrosis with appearance of a 1 mm calculus at the ureterovesicular junction. Mild inflammation surrounding the left kidney. No additional calculi. 2. Right renal cysts. No further imaging follow-up recommended based on MIPS criteria. 3. Mild hepatic enlargement. 4. Gallbladder sludge versus stones. 5. Mild to moderate pancreatic atrophy. COMMENTS: Consistent with the [employer]'s Incidental Findings Committee white paper (J Am Reji Radiol 2018): Any incidental renal lesion less than 1 cm or classified as too small to characterize, or any incidental cystic renal lesion characterized as simple-appearing, is likely benign. No follow-up imaging is recommended for these lesions per consensus recommendations based on imaging criteria.
[2020-04-24] MEDS ORDERED: Ciprofloxacin 500 MG Tab ONE (19:11)
[2020-04-24] MEDS ORDERED: Acetaminophen/HYDROcodone 325-10 MG Tab ONE (19:11)
[2020-04-24] MEDS ORDERED: Ondansetron 4 MG Tab.DIS ONE (19:11)
== END 2020-04-24 19:34 | disposition home or self-care (01) ==
LOC: DL.ED 17:27
DX: N13.2 Hydronephrosis with renal and ureteral calculous obstruction (principal); I10 Essential (primary) hypertension; E11.9 Type 2 diabetes mellitus without complications; N40.0 Benign prostatic hyperplasia without lower urinary tract symptoms; E66.9 Obesity, unspecified; Z68.33 Body mass index [BMI] 33.0-33.9, adult; Z79.899 Other long term (current) drug therapy
CPT/HCPCS: 36415; 74176; 80053; 81003; 85025; 96374; 96375; 99284; A9270; J1170; J2405; J7030

== ENCOUNTER 2020-07-10 20:10 | Emergency (ER) | payer OTHER ==
[2020-07-10] MEDS ORDERED: HYDROmorphone 1 MG/ML Syringe IVPUSH ONE (23:00)
[2020-07-10] MEDS ORDERED: Ondansetron 4 MG/2 ML SDV IV ONE (23:00)
[2020-07-10] MEDS ORDERED: Sodium Chloride 0.9% 1,000 ML IV ONE (23:00)
[2020-07-10] MEDS ORDERED: cloNIDine 0.1 MG Tab PO ONE (23:06)
[2020-07-10 23:20] VITALS: BP 157/105
[2020-07-10 23:28] VITALS: PULSE 88
--- NOTE | 2020-07-11 00:15 | EDM.PDOC ---
ED HPI GENERAL MEDICAL PROBLEM - General Chief Complaint: Abdominal Pain Stated Complaint: LOWER BELLY PAIN, KIDNEY STONE Time Seen by Provider: 07/10/20 22:49 Source of Information: Reports: Patient, RN, RN Notes Reviewed History Limitations: Reports: No Limitations - History of Present Illness INITIAL COMMENTS - FREE TEXT/NARRATIVE: Patient is a 55-year-old male who presents to ER with complaint of left lower quadrant pain that radiates into the groin. Patient has significant history of kidney stones. Patient was seen in the ER at [facility] in [place] last evening for left flank pain/left lower quadrant pain. He was given fluids, Dilaudid, Flomax, Zofran at that time. A CT was completed which report did not show stones, did show hydronephrosis on the left side.. Patient states the ER doc told him that they may have been between slices in the CT. Patient continues to have pain which he rates a 7/10. Denies any nausea. States the pain comes in pulsations. Patient's blood pressure is elevated while in the ER, states he has not had his blood pressure meds in the last 2 days. Patient states the pain initially began at 1:30 AM on Sunday. States he last took a Percocet and Zofran at 1600 hrs. Onset: Gradual Duration: Colic Treatments [facility]: Reports: Other Medication(s) Left lower abd. pain Pain Score (Numeric/FACES): 4 - Related Data Allergies Allergy/AdvReac Type Severity Reaction Status Date / Time No Known Allergies Allergy Verified 07/11/20 00:32 Home Meds: Home Meds Losartan [Cozaar] 100 mg PO DAILY 06/17/17 [History] metFORMIN HCl [Metformin HCl ER] 1,000 mg PO BID 06/17/17 [History] Cholecalciferol (Vitamin D3) [Vitamin D3] 1,000 units PO DAILY 07/05/17 [History] Gemfibrozil 600 mg PO BID 07/05/17 [History] Tamsulosin [Tamsulosin 24 Hr] 0.4 mg PO ASDIRECTED 04/24/20 [History] Past Medical History - Past Health History Medical/Surgical History: Denies Medical/Surgical History HEENT History: Reports: Hard of Hearing, Impaired Vision, Other (See Below) Other HEENT History: high frequency hearing loss, tininitis Cardiovascular History: Reports: High Cholesterol, Hypertension Respiratory History: Reports: Sleep Apnea Gastrointestinal History: Reports: Diverticulosis, GERD, Other (See Below) Other Gastrointestinal History: NON ALCOHOLIC FATTY LIVER DISEASE, HX OF ELEVATED LIVER ENZYMES. Hx of adenoma Genitourinary History: Reports: None, Renal Calculus Musculoskeletal History: Reports: Arthritis Neurological History: Reports: None Psychiatric History: Reports: None Endocrine/Metabolic History: Reports: Diabetes, Type II, Obesity/BMI 30+, Vitamin D Deficiency Hematologic History: Reports: None Immunologic History: Reports: None Oncologic (Cancer) History: Reports: None Dermatologic History: Reports: None - Infectious Disease History Infectious Disease History: Reports: Chicken Pox - Past Surgical History Head Surgeries/Procedures: Reports: None HEENT Surgical History: Reports: Oral Surgery Other HEENT Surgeries/Procedures: Dental implant Cardiovascular Surgical History: Reports: None Respiratory Surgical History: Reports: None GI Surgical History: Reports: Colonoscopy, Polypectomy Male Surgical History: Reports: Circumcision Other Male Surgeries/Procedures: circumcision as a child Neurological Surgical History: Reports: None Musculoskeletal Surgical History: Reports: None Dermatological Surgical History: Reports: None Social & Family History - Family History HEENT: Reports: None Cardiac: Reports: Heart Failure, High Cholesterol, Hypertension Respiratory: Reports: None GI: Reports: Diverticulosis : Reports: None Musculoskeletal: Reports: None Neurological: Reports: Other (See Below) Other Neurological Family History: Brother has muscular dystophy Psychiatric: Reports: None Endocrine/Metabolic: Reports: None Hematologic: Reports: None Immunologic: Reports: None Dermatologic: Reports: None Oncologic: Reports: Bladder, Other (See Below) Other Oncologic Family History: Bladder cancer father. testicular cancer #6 brother - Caffeine Use Caffeine Use: Reports: Coffee, Tea Other Caffeine Use: 2 cups daily - Living Situation & Occupation Living situation: Reports: , with Family ED ROS GENERAL - Review of Systems Review Of Systems: Comprehensive ROS is negative, except as noted in HPI. ED EXAM, RENAL/ - Physical Exam Exam: See Below Exam Limited By: No Limitations General Appearance: Alert, WD/WN, Moderate Distress Eye Exam: Bilateral Eye: EOMI, Normal Inspection Ears: Normal External Exam, Hearing Grossly Normal Nose: Normal Inspection Throat/Mouth: Normal Inspection, Normal Voice, No Airway Compromise Head: Atraumatic, Normocephalic Neck: Normal Inspection, Supple, Non-Tender, Full Range of Motion Respiratory/Chest: No Respiratory Distress, Lungs Clear, Normal Breath Sounds, No Accessory Muscle Use, Chest Non-Tender Cardiovascular: Normal Peripheral Pulses, Regular Rate, Rhythm, No Edema, No Gallop, No JVD, No Murmur, No Rub GI/Abdominal: Normal Bowel Sounds, Tender (LLQ, flank), Other (firm) (Male) Exam: Deferred Rectal (Males) Exam: Deferred Back Exam: Normal Inspection, Full Range of Motion, CVA Tenderness (L) Extremities: Normal Inspection, Normal Range of Motion, Non-Tender, Normal Capillary Refill, No Pedal Edema Neurological: Alert, Oriented, CN II-XII Intact, Normal Cognition, Normal Gait, Normal Reflexes, No Motor/Sensory Deficits Psychiatric: Normal Affect, Normal Mood Skin Exam: Warm, Dry, Intact, Normal Color, No Rash Lymphatic: No Adenopathy Course - Vital Signs Last Recorded V/S: Last Vital Signs Temp 99.8 F 07/10/20 22:14 Pulse 88 07/10/20 23:26 Resp 18 07/10/20 22:14 BP 157/105 H 07/10/20 23:26 Pulse Ox 86 L 07/10/20 23:26 - Orders/Labs/Meds Labs: Laboratory Tests 07/10/20 Range/Units 22:50 Urine Color Yellow (YELLOW) Urine Appearance Clear (CLEAR) Urine pH 5.0 (5.0-9.0) Ur Specific [place] 1.010 (1.005-1.030) Urine Protein Negative (NEGATIVE) Urine Glucose (UA) Negative (NEGATIVE) Urine Ketones Negative (NEGATIVE) Urine Occult Blood Negative (NEGATIVE) Urine Nitrite Negative (NEGATIVE) Urine Bilirubin Negative (NEGATIVE) Urine Urobilinogen 0.2 (0.2-1.0) mg/dL Ur Leukocyte Esterase Negative (NEGATIVE) Meds: Medications Discontinued Medications Generic Name Dose Route Start Last Admin Trade Name Freq PRN Reason Stop Dose Admin Clonidine HCl 0.1 mg 07/10/20 23:06 07/10/20 23:19 Clonidine 0.1 Mg Tab PO 07/10/20 23:07 0.1 mg ONETIME ONE Administration Hydromorphone HCl 1 mg 07/10/20 23:00 07/10/20 23:14 Hydromorphone 1 Mg/Ml Syringe IVPUSH 07/10/20 23:01 1 mg ONETIME ONE Administration Sodium Chloride 1,000 mls @ 999 mls/hr 07/10/20 23:00 07/10/20 23:11 Normal Saline IV 07/11/20 00:00 999 mls/hr .BOLUS ONE Administration Ondansetron HCl 4 mg 07/10/20 23:00 07/10/20 23:12 Ondansetron 4 Mg/2 Ml Sdv IV 07/10/20 23:01 4 mg ONETIME ONE Administration Departure - Departure Time of Disposition: 00:13 Disposition: Home, Self-Care 01 Condition: Fair Clinical Impression: Left renal stone - Discharge Information *PRESCRIPTION DRUG MONITORING PROGRAM REVIEWED*: No *COPY OF PRESCRIPTION DRUG MONITORING REPORT IN PATIENT AMRITA: No Instructions: Kidney Stones, [id number] Referrals: PCP,None [Primary Care Provider] - Forms: ED Department Discharge Additional Instructions: Drink plenty of water Follow up with your primary care facility for Urology consult Take pain meds as prescribed RX: Flomax Sepsis Event Note (ED) - Evaluation Sepsis Screening Result: No Definite Risk - Focused Exam Vital Signs: Vital Signs Temp Pulse Resp BP BP Pulse Ox 07/10/20 23:26 88 157/105 H 86 L 07/10/20 23:19 157/105 H 07/10/20 22:14 99.8 F 97 18 163/95 H 95
== END 2020-07-11 00:24 | disposition home or self-care (01) ==
LOC: DL.ED 20:10
DX: N20.0 Calculus of kidney (principal); I10 Essential (primary) hypertension; E11.9 Type 2 diabetes mellitus without complications; E66.9 Obesity, unspecified; Z68.33 Body mass index [BMI] 33.0-33.9, adult; Z79.84 Long term (current) use of oral hypoglycemic drugs
CPT/HCPCS: 81003; 96374; 96375; 99283; 99284-25; A9270-GY; J1170; J2405; J7030